=== PATIENT | female | born 1965 | race Caucasian/White ===

== ENCOUNTER 2016-08-31 22:16 | Emergency (ER) | payer BC ==
[~2016-08-31] VITALS: Ht 172.7 cm; Wt 102.1 kg
[~2016-08-31 22:16] MED LIST: ALBU1AER9 INH; CRS/10 PO; FEXO1TAB49 PO; IBUP-103 PO; IMT100 PO; LISI-461 PO; LORA-741 PO; LRS20 PO; MOME50SP5; NAPR-1169 PO; VENL150T33 PO; ZNF/4 PO
[2016-08-31 22:20] VITALS: TEMP 36.6; Ht 172.7 cm; Wt 102.1 kg
[2016-08-31] MEDS ORDERED: SODIUM CHLORIDE 0.9% 1000ML 500 ML IV STA (22:59)
[2016-08-31] MEDS ORDERED: METHYLPREDNISOLONE 125 MG VIAL IV STA (22:59)
[2016-08-31 23:44] LABS: BASO % 0.3 %; BASO ABS # 0.03 K/uL (0-0.2); COMPLETE YES; EOS % 4.8 %; HEMATOCRIT 39.9 % (37-47); IG% 0.2 %; LYMPH % 12.2 %; LYMPH ABS # 1.13 K/uL (1.2-3.4); MEAN CELL VOLUME 85.4 fL (80-100); MEAN CORPUSCULAR HEMOGLOBIN 29.8 pg (25-34); MEAN CORPUSCULAR HGB CONC 34.8 g/dl (32-36); MEAN PLATELET VOLUME 11.1 fL (7.4-10.4); MONO % 8.9 %; NEUT % 73.6 %; PLATELET COUNT 229 K/uL (130-400); RED BLOOD COUNT 4.67 M/uL (4.2-5.4); WHITE BLOOD COUNT 9.28 K/uL (4.8-10.8)
--- NOTE | 2016-08-31 23:53 | EMERGENCY ROOM VISIT NOTE ---
History Report prepared by Lola: Naomi Herrera Under the Supervision of: Dr. Irving Valenzuela M.D. First contact with patient: 22:53 Chief Complaint: RESPIRATORY PROBLEMS Stated Complaint: TROUBLE BREATHING Nursing Triage Summary: Patient states "I am having trouble breathing since today. I have hx of sarcoidosis in my lungs." History of Present Illness The patient is a 51 year old female who presents to the Emergency Room with complaints of constant respiratory troubles beginning today. The patient states that she began to have trouble breathing, sore throat and is losing her voice. She also notes a wet cough with green sputum. The cough did begin yesterday. The patient has been using her inhalers that she has at home with no relief. She denies a fever. The patient states that she felt good yesterday. She also notes sarcoidosis in her lungs and asthma. Patient had her influenza vaccine this year. Over the weekend she was exposed to chest cold symptoms. Source of History: patient Onset: today Position: other (global) Quality: other (respiratory troubles) Associated Symptoms: + cough, + sorethroat, No fevers Note: Patient is experiencing trouble breathing and lose of voice. Review of Systems See HPI for pertinent positives & negatives. A total of 10 systems reviewed and were otherwise negative. Past Medical & Surgical Medical Problems: (1) Asthma (2) Chest pain (3) Chondrosarcoma (4) Hyperlipidemia (5) Hypertension (6) Malignant melanoma Family History No significant family history Social History Smoking Status: Never Smoker Alcohol Use: occasionally Marital Status: Housing Status: lives with family Current/Historical Medications Scheduled Doxycycline Hyclate (Vibramycin), 100 MG PO BID Fexofenadine Hcl (Jenelle Allergy), 180 MG PO DAILY Furosemide (Furosemide), 20 MG PO DAILY Lactobacillus (Probiotic), 1 DOSE PO DAILYBB Lisinopril (Zestril), 10 MG PO DAILY Naproxen (Naprosyn), 500 MG PO BID Prednisone (Prednisone), 2 TAB PO DAILY Pseudoephedrine-Guaifenesin (Mucinex D), 1 TAB PO BID Rosuvastatin Calcium (Crestor), 10 MG PO DAILY Tizanidine (Tizanidine HCl), 4 MG PO HS Venlafaxine Hcl (Venlafaxine Extended Rel), 37.5 MG PO QAM Venlafaxine Hcl (Effexor Extended Rel), 150 MG PO QAM Scheduled PRN Albuterol Hfa (Ventolin Hfa), 2 PUFFS PO q4-6hrs PRN for Wheezing Fluticasone Propionate (Fluticasone Propionate), 1 SPRAY FAM DAILY PRN for Nasal Congestion Ibuprofen Tab (Advil), 400 MG PO Q6H PRN for Pain or Fever Lorazepam (Ativan), 0.5 MG PO TID PRN for Anxiety Sumatriptan Succinate (Imitrex), 50 MG PO UD PRN for Migraine Allergies Coded Allergies: Sulfamethoxazole w/Trimethoprim (Verified Allergy, Intermediate, HIVES, ) Penicillins (Verified Allergy, Mild, ILLNESS, 08/31/16) Physical Exam Vital Signs Date Time Temp Pulse Resp B/P Pulse Ox O2 Delivery O2 Flow Rate FiO2 09/01/16 00:45 159/112 09/01/16 00:39 85 18 95 Room Air 08/31/16 23:54 93 20 165/88 97 Room Air 08/31/16 23:36 90 08/31/16 22:24 100 Room Air 08/31/16 22:20 36.6 103 18 142/87 100 Room Air Physical Exam GENERAL: Patient is in no acute distress. HEENT: No acute trauma, normocephalic atraumatic, mucous membranes moist, no nasal congestion, no scleral icterus, no throat erythema or exudate, hoarse sounding voice. NECK: No stridor, no adenopathy, no meningismus, trachea is midline. LUNGS: Decreased breath sounds bilaterally. No wheezing or rhonchi. No respiratory distress. HEART: Mildly tachycardic with regular rhythm, no murmurs. ABDOMEN: Soft, nontender, bowel sounds positive, no hernias, no peritonitis. EXTREMITIES: No cyanosis or edema, full range of motion of all the joints without pain or difficulty, no signs for acute trauma. NEUROLOGIC: Oriented x 3, no acute motor or sensory deficits, no focal weakness. SKIN: No rash, no jaundice, no diaphoresis. Medical Decision & Procedures ER Provider Diagnostic Interpretation: X-ray results as stated below per interpretation by me and the radiologist: Chest X-Ray: No CHF, pneumonia, pneumothorax, or mediastinal widening. Laboratory Results 08/31/16 23:34 Red Blood Count 4.67, Mean Corpuscular Volume 85.4, Mean Corpuscular Hemoglobin 29.8, Mean Corpuscular Hemoglobin Concent 34.8, Mean Platelet Volume 11.1, Neutrophils (%) (Auto) 73.6, Lymphocytes (%) (Auto) 12.2, Monocytes (%) (Auto) 8.9, Eosinophils (%) (Auto) 4.8, Basophils (%) (Auto) 0.3, Neutrophils # (Auto) 6.82, Lymphocytes # (Auto) 1.13, Monocytes # (Auto) 0.83, Eosinophils # (Auto) 0.45, Basophils # (Auto) 0.03 08/31/16 23:34 Test 08/31/16 23:30 08/31/16 23:34 Influenza Type A Antigen Neg for Influ A (NEG) Influenza Type B Antigen Neg for Influ B (NEG) White Blood Count 9.28 K/uL (4.8-10.8) Red Blood Count 4.67 M/uL (4.2-5.4) Hemoglobin 13.9 g/dL (12.0-16.0) Hematocrit 39.9 % (37-47) Mean Corpuscular Volume 85.4 fL (80-100) Mean Corpuscular Hemoglobin 29.8 pg (25-34) Mean Corpuscular Hemoglobin Concent 34.8 g/dl (32-36) Platelet Count 229 K/uL (130-400) Mean Platelet Volume 11.1 fL (7.4-10.4) Neutrophils (%) (Auto) 73.6 % Lymphocytes (%) (Auto) 12.2 % Monocytes (%) (Auto) 8.9 % Eosinophils (%) (Auto) 4.8 % Basophils (%) (Auto) 0.3 % Neutrophils # (Auto) 6.82 K/uL (1.4-6.5) Lymphocytes # (Auto) 1.13 K/uL (1.2-3.4) Monocytes # (Auto) 0.83 K/uL (0.11-0.59) Eosinophils # (Auto) 0.45 K/uL (0-0.5) Basophils # (Auto) 0.03 K/uL (0-0.2) RDW Standard Deviation 42.6 fL (36.4-46.3) RDW Coefficient of Variation 13.7 % (11.5-14.5) Immature Granulocyte % (Auto) 0.2 % Immature Granulocyte # (Auto) 0.02 K/uL (0.00-0.02) Anion Gap 9.0 mmol/L (3-11) Est Creatinine Clear Calc Drug Dose 92.4 ml/min Estimated GFR () 86.9 Estimated GFR (Non- 75.0 BUN/Creatinine Ratio 24.0 (10-20) Calcium Level 8.9 mg/dl (8.5-10.1) Total Bilirubin 0.5 mg/dl (0.2-1) Aspartate Amino Transf (AST/SGOT) 18 U/L (15-37) Alanine Aminotransferase (ALT/SGPT) 26 U/L (12-78) Alkaline Phosphatase 93 U/L (45-117) Troponin I < 0.015 ng/ml (0-0.045) Total Protein 7.0 gm/dl (6.4-8.2) Albumin 3.9 gm/dl (3.4-5.0) Globulin 3.1 gm/dl (2.5-4.0) Albumin/Globulin Ratio 1.3 (0.9-2) Laboratory results reviewed by me. Medications Administered Medications (Trade) Dose Ordered Sig/Citlaly Route Start Time Stop Time Status Last Admin Dose Admin Sodium Chloride (Nss 1000ml) 500 ml @ 999 mls/hr Q31M STAT IV 08/31/16 22:59 08/31/16 23:29 DC 08/31/16 22:59 999 MLS/HR Methylprednisolone Sodium Succinate (Solu-Medrol IV) 125 mg NOW STAT IV 08/31/16 22:59 08/31/16 23:01 DC 08/31/16 23:51 125 MG Doxycycline Hyclate (Vibramycin Cap) 100 mg ONE ONCE PO 09/01/16 01:15 09/01/16 01:16 DC 09/01/16 01:15 100 MG ECG Indication: SOB/dyspnea Rate (beats per minute): 88 Rhythm: normal sinus Findings: no acute ischemic change, prolonged QT (mildly), no ectopy ED Course 3: The patient was evaluated in room A2. A complete history and physical exam was performed. 2259: Solu Medrol IV 125 mg IV, Sodium Chloride 500 ml @ 999 mls/hr IV. Patient was given 100 mg of oral doxycycline. 0041: Reevaluated the patient. Discussed results and discharge instructions: She verbalized understanding and agreement. The patient is ready for discharge. Medical Decision The patient is a 51 year old female who presents to the ED with complaints of respiratory troubles. Differential diagnoses considered include flu like illness, pneumonia, bronchitis, pneumothorax, exacerbation of asthma, anemia, electrolyte imbalance. There is no leukocytosis or concerning anemia. No significant electrolyte abnormality, kidney failure or hepatitis. EKG shows a sinus rhythm, no acute ischemia. Cardiac enzyme testing times one is not consistent with acute cardiac injury. Chest x-ray does not show pneumonia, pneumothorax or mediastinal widening. Influenza testing was negative. The patient was already somewhat jittery from the albuterol she had used prior to arrival, no further albuterol was given. She was given IV Solu-Medrol and IV saline. She received a dose of oral doxycycline. The patient has an acute bronchitis with a flare of her asthma. She has underlying sarcoid. Given her underlying issues, I do think antibiotics would be indicated. She is going to be placed on doxycycline twice a day. She will continue frequent albuterol use and I have written a prescription for a prednisone burst. The patient can return here if not improving or if her breathing seems to be worsening. Outpatient follow-up was suggested. Impression Primary Impression: Acute bronchitis Additional Impression: Exacerbation of asthma Scribe Attestation The scribe's documentation has been prepared under my direction and personally reviewed by me in its entirety. I confirm that the note above accurately reflects all work, treatment, procedures, and medical decision making performed by me. Departure Information Dispostion Home / Self-Care Prescriptions Prednisone (Prednisone) 20 Mg Tab 2 TAB PO DAILY for 5 Days, #10 TAB Prov: Irving Valenzuela M.D. 09/01/16 Doxycycline Hyclate (VIBRAMYCIN) 100 Mg Cap 100 MG PO BID for 10 Days, #20 CAP Prov: Irving Valenzuela M.D. 09/01/16 Referrals No Doctor, Assigned (PCP) Forms HOME CARE DOCUMENTATION FORM, IMPORTANT VISIT INFORMATION, WORK / SCHOOL INSTRUCTIONS Patient Instructions My [facility] Additional Instructions doxycycline 2x per day for 10 days prednisone daily for 5 more days albuterol 2-3 puffs every 6 hour for keep the lungs open rest stay well hydrated return if worsening or if breathing is not improving see fam md next week Problem Qualifiers
[2016-08-31] MEDS ORDERED: EFFSR150 PO (23:58)
[2016-08-31] MEDS ORDERED: VENL37.593 PO (23:58)
[2016-08-31] MEDS ORDERED: LSX20 PO (23:59)
[2016-08-31] MEDS ORDERED: FLNIN/ NAE (23:59)
[2016-09-01] MEDS ORDERED: VNTHFA/IN PO
[2016-09-01] MEDS ORDERED: PSEU60TA80 PO (00:03)
[2016-09-01] MEDS ORDERED: LACT1CAP6 PO (00:03)
[2016-09-01 00:06] LABS: ALT/SGPT 26 U/L (12-78); BLOOD UREA NITROGEN 21 mg/dl (7-18); CALCIUM 8.9 mg/dl (8.5-10.1); CARBON DIOXIDE 28 mmol/L (21-32); CHLORIDE 105 mmol/L (98-107); CREATININE 0.88 mg/dl (0.60-1.20); GLUCOSE 110 mg/dl (70-99); POTASSIUM 3.2 mmol/L (3.5-5.1); SODIUM 142 mmol/L (136-145)
[2016-09-01 00:11] LABS: ALB/GLOB RATIO 1.3 (0.9-2); ALKALINE PHOSPHATASE 93 U/L (45-117); AST/SGOT 18 U/L (15-37)
[2016-09-01] MEDS ORDERED: AZITHROMYCIN 250 MG TAB PO STA (00:34)
[2016-09-01 00:39] VITALS: PULSE 85; O2SAT 95
[2016-09-01] MEDS ORDERED: PRED20TA PO (00:39)
[2016-09-01] MEDS ORDERED: DOXY100C PO (00:39)
[2016-09-01 00:45] VITALS: BP 159/112
[2016-09-01] MEDS ORDERED: DOXYCYCLINE HYCLATE 100 MG CAP PO ONE (01:15)
--- NOTE | 2016-09-01 07:19 | DIAGNOSTIC IMAGING REPORT ---
SINGLE VIEW CHEST CLINICAL HISTORY: Dyspnea. FINDINGS: An AP, portable, upright chest radiograph is compared to chest x-ray and chest CT dated 09/09/2015. The examination is degraded by portable technique and patient rotation. The cardiomediastinal silhouette is unremarkable. Chronic interstitial thickening is unchanged. There is no airspace consolidation large pleural effusion. No pneumothorax is seen. The skeletal structures appear osteopenic. The bony thorax is grossly intact. IMPRESSION: No acute cardiopulmonary abnormality. Electronically signed by: Irving Escalante M.D. 09/01/2016 7:17 AM Dictated Date/Time: 09/01/2016 7:14 AM
== END 2016-09-01 01:11 | disposition home or self-care (01) ==
LOC: C.EDB 22:17 → C.EDA 09-01 01:11
DX: J20.9 Acute bronchitis, unspecified (principal); J45.901 Unspecified asthma with (acute) exacerbation; E78.5 Hyperlipidemia, unspecified; I10 Essential (primary) hypertension; Z85.820 Personal history of malignant melanoma of skin

== ENCOUNTER → 2017-01-16 | Outpatient (CLI) | payer BC ==
[~2017-01-16] MED LIST changes: -ALBU1AER9 INH; +EFFSR150 PO; +FLNIN/ NAE; +LACT1CAP6 PO; -LRS20 PO; +LSX20 PO; -MOME50SP5; +PSEU60TA80 PO; -VENL150T33 PO; +VENL37.593 PO; +VNTHFA/IN PO
--- NOTE | 2017-01-16 14:29 | DIAGNOSTIC IMAGING REPORT ---
CHEST 2 VIEWS ROUTINE HISTORY: D86.0 Sarcoidosis of [id number] COMPARISON: Chest 08/31/2016. FINDINGS: The heart is normal in size. No pleural effusions. No pneumothorax. No rib fractures. Bilateral hilar enlargement and upper lobe predominant interstitial thickening remains unchanged. IMPRESSION: No change in the bilateral hilar enlargement suggestive of mild lymphadenopathy and upper lobe predominant interstitial thickening. This is consistent with the patient's history of sarcoidosis. No new focal lung consolidations. Electronically signed by: Aman Thakur M.D. 01/16/2017 2:28 PM Dictated Date/Time: 01/16/2017 2:26 PM
== END | disposition home or self-care (01) ==
LOC: C.RAD1850 13:57
PROVIDERS: ATTEND Internal Medicine Pulmonary Disease
DX: D86.0 Sarcoidosis of lung (principal)

== ENCOUNTER → 2017-08-27 | Outpatient (CLI) | payer BC ==
[~2017-08-27] MED LIST changes: +TRAM-10 PO; +VENL75CA PO
== END | disposition home or self-care (01) ==
LOC: C.LAB 14:42
PROVIDERS: ATTEND Physician Assistant

== ENCOUNTER 2017-09-07 13:04 | Emergency (ER) | payer BC ==
[~2017-09-07] VITALS: Ht 172.7 cm; Wt 106.0 kg
[~2017-09-07 13:04] MED LIST changes: -TRAM-10 PO; -VENL75CA PO
[2017-09-07 13:15] VITALS: TEMP 36.7; Ht 172.7 cm; Wt 106.0 kg
[2017-09-07] MEDS ORDERED: VENL75CA PO (13:50)
[2017-09-07] MEDS ORDERED: SODIUM CHLORIDE 0.9% 1000ML 1,000 ML IV STA (14:07)
[2017-09-07] MEDS ORDERED: PROMETHAZINE HCL INJ 25 MG in SODIUM CHLORIDE 0.9% 50ML 50 ML IV STA (14:07)
[2017-09-07] MEDS ORDERED: KETOROLAC TROMETHAMINE 30 MG/ML VIAL IV STA (14:11)
--- NOTE | 2017-09-07 14:13 | EMERGENCY ROOM VISIT NOTE ---
History Report prepared by Lola: León Yi Under the Supervision of: Dr. Domingo Mckeon D.O. First contact with patient: 14:00 Chief Complaint: HEADACHE Stated Complaint: HEADACHE, NUMBNESS AND TINGLING, HAS BRAIN TUMOR History of Present Illness The patient is a 52 year old female with metastatic brain cancer who presents to the Emergency Room with complaints of a persistent right-sided headache that started upon waking this morning. She states that in the past her headaches have been on both sides, so this is unusual. The patient notes that she had proton therapy in 2014, and her last imaging done in May showed that her brain tumor was stabilized. She notes that she has not had a headache "in a while". The patient says that she has came here before for headaches, and received a cocktail which helped. She adds that she has had tingling on the right side of her face this morning, as well as some ringing in her right ear. The patient states that she has been nauseous with episodes of vomiting. She denies any facial droop or difficulty speaking. The patient notes that she chronically has trouble walking. Source of History: patient, family Onset: Upon waking this morning Position: head (right) Symptom Intensity: never had unilateral before Quality: ache Timing: other (persistent) Associated Symptoms: + nausea, + vomiting Note: Tingling right side of face. Right ear ringing. Denies facial droop or difficulty speaking. Review of Systems See HPI for pertinent positives & negatives. A total of 10 systems reviewed and were otherwise negative. Past Medical & Surgical Medical Problems: (1) Asthma (2) Chest pain (3) Chondrosarcoma (4) Hyperlipidemia (5) Hypertension (6) Malignant melanoma Family History No significant family history Social History Smoking Status: Never Smoker Alcohol Use: occasionally Marital Status: Housing Status: lives with family Current/Historical Medications Scheduled Fexofenadine Hcl (Jenelle Allergy), 180 MG PO DAILY Furosemide (Furosemide), 20 MG PO DAILY Lactobacillus (Probiotic), 1 DOSE PO DAILYBB Lisinopril (Zestril), 10 MG PO DAILY Naproxen (Naprosyn), 500 MG PO BID Rosuvastatin Calcium (Crestor), 10 MG PO DAILY Tizanidine (Tizanidine HCl), 4 MG PO HS Venlafaxine Hcl (Effexor Extended Rel), 150 MG PO QAM Venlafaxine Hcl (Effexor Xr), 7 MG PO DAILY Scheduled PRN Albuterol Hfa (Ventolin Hfa), 2 PUFFS PO q4-6hrs PRN for Wheezing Fluticasone Propionate (Fluticasone Propionate), 1 SPRAY FAM DAILY PRN for Nasal Congestion Ibuprofen Tab (Advil), 400 MG PO Q6H PRN for Pain or Fever Lorazepam (Ativan), 0.5 MG PO TID PRN for Anxiety Tramadol (Ultram), 1 TAB PO TID PRN for Severe Pain Allergies Coded Allergies: Sulfamethoxazole w/Trimethoprim (Verified Allergy, Intermediate, HIVES, 09/07/17) Penicillins (Verified Allergy, Mild, ILLNESS, 09/07/17) Physical Exam Vital Signs Date Time Temp Pulse Resp B/P (MAP) Pulse Ox O2 Delivery O2 Flow Rate FiO2 09/07/17 17:10 78 18 177/114 96 Room Air 09/07/17 15:15 86 16 178/113 97 Room Air 09/07/17 14:32 98 Room Air 09/07/17 14:32 98 Room Air 09/07/17 14:09 79 09/07/17 13:15 36.7 76 16 196/111 96 Room Air Physical Exam GENERAL: Patient is awake, alert, and in no acute distress. Patient is resting comfortably and showing no signs of anxiety EYES: The conjunctivae are clear. The pupils are round and reactive. EARS, NOSE, MOUTH AND THROAT: The nose is without any evidence of any deformity. Mucous membranes are moist tongue is midline NECK: The neck is nontender and supple. RESPIRATORY: Normal respiratory effort is noted there is no evidence of wheezing rhonchi or rales CARDIOVASCULAR: Regular rate and rhythm noted there no murmurs rubs or gallops normal S1 normal S2 GASTROINTESTINAL: The abdomen is soft. Bowel sounds are present in all quadrants. Abdomen is nontender MUSCULOSKELETAL/EXTREMITIES: There is no evidence of gross deformity full range of motion is noted in the hips and shoulders SKIN: There is no obvious evidence of any rash. There are no petechiae, pallor or cyanosis noted. NEUROLOGIC: Patient is awake alert and oriented x3 strength is symmetric patellar reflexes are 2+ bilaterally Medical Decision & Procedures ER Provider Diagnostic Interpretation: HEAD WITHOUT CONTRAST (CT) CLINICAL HISTORY: 52 years-old Female presenting with right sided VILCHIS, hx of metastatic CA to brain. TECHNIQUE: Multidetector CT imaging of the head was performed without the use of intravenous contrast. IV contrast: None. A dose lowering technique was used consistent with the principles of ALARA (as low as reasonably achievable). COMPARISON: MR brain from 06/03/[address] head from 05/15/2014. CT DOSE (mGy.cm): The estimated cumulative dose is 537.48 mGy.cm. FINDINGS: Head Bucker topogram: Unremarkable. Ventricles and sulci normal in size. Cystic encephalomalacia and gliosis in the anterior right temporal lobe. No mass effect or midline shift. No hemorrhage or acute territorial infarct. No extra-axial fluid collection. Redemonstration of osseous erosion centered at the right kathleen-occipital synchondrosis. The degree of osseous erosion is unchanged. Intracranial extension is poorly assessed on this noncontrast CT. IMPRESSION: 1. No acute intracranial abnormality. 2. Redemonstration of the destructive right skull base mass centered at the kathleen-occipital synchondrosis consistent with known chondrosarcoma. The extent of the mass is poorly delineated on this noncontrast CT. If there is clinical concern, contrast-enhanced MR would better characterize the full extent of this mass. Electronically signed by: Akira Pitts M.D. 09/07/2017 3:25 PM Dictated Date/Time: 09/07/2017 3:20 PM Laboratory Results 09/07/17 14:22 Red Blood Count 4.84, Mean Corpuscular Volume 89.0, Mean Corpuscular Hemoglobin 30.6, Mean Corpuscular Hemoglobin Concent 34.3, Mean Platelet Volume 10.9, Neutrophils (%) (Auto) 77.9, Lymphocytes (%) (Auto) 10.1, Monocytes (%) (Auto) 8.4, Eosinophils (%) (Auto) 3.1, Basophils (%) (Auto) 0.3, Neutrophils # (Auto) 5.03, Lymphocytes # (Auto) 0.65, Monocytes # (Auto) 0.54, Eosinophils # (Auto) 0.20, Basophils # (Auto) 0.02 09/07/17 14:22 Test 09/07/17 14:22 09/07/17 16:24 White Blood Count 6.45 K/uL (4.8-10.8) Red Blood Count 4.84 M/uL (4.2-5.4) Hemoglobin 14.8 g/dL (12.0-16.0) Hematocrit 43.1 % (37-47) Mean Corpuscular Volume 89.0 fL (80-100) Mean Corpuscular Hemoglobin 30.6 pg (25-34) Mean Corpuscular Hemoglobin Concent 34.3 g/dl (32-36) Platelet Count 227 K/uL (130-400) Mean Platelet Volume 10.9 fL (7.4-10.4) Neutrophils (%) (Auto) 77.9 % Lymphocytes (%) (Auto) 10.1 % Monocytes (%) (Auto) 8.4 % Eosinophils (%) (Auto) 3.1 % Basophils (%) (Auto) 0.3 % Neutrophils # (Auto) 5.03 K/uL (1.4-6.5) Lymphocytes # (Auto) 0.65 K/uL (1.2-3.4) Monocytes # (Auto) 0.54 K/uL (0.11-0.59) Eosinophils # (Auto) 0.20 K/uL (0-0.5) Basophils # (Auto) 0.02 K/uL (0-0.2) RDW Standard Deviation 43.6 fL (36.4-46.3) RDW Coefficient of Variation 13.3 % (11.5-14.5) Immature Granulocyte % (Auto) 0.2 % Immature Granulocyte # (Auto) 0.01 K/uL (0.00-0.02) Anion Gap 6.0 mmol/L (3-11) Est Creatinine Clear Calc Drug Dose 109.3 ml/min Estimated GFR () 104.7 Estimated GFR (Non- 90.4 BUN/Creatinine Ratio 27.6 (10-20) Calcium Level 8.8 mg/dl (8.5-10.1) Magnesium Level 2.3 mg/dl (1.8-2.4) Total Bilirubin 0.5 mg/dl (0.2-1) Direct Bilirubin 0.1 mg/dl (0-0.2) Aspartate Amino Transf (AST/SGOT) 14 U/L (15-37) Alanine Aminotransferase (ALT/SGPT) 29 U/L (12-78) Alkaline Phosphatase 90 U/L (45-117) Total Protein 7.5 gm/dl (6.4-8.2) Albumin 4.0 gm/dl (3.4-5.0) Urine Color YELLOW Urine Appearance CLEAR (CLEAR) Urine pH 7.0 (4.5-7.5) Urine Specific [place] 1.017 (1.000-1.030) Urine Protein NEG (NEG) Urine Glucose (UA) NEG (NEG) Urine Ketones NEG (NEG) Urine Occult Blood NEG (NEG) Urine Nitrite NEG (NEG) Urine Bilirubin NEG (NEG) Urine Urobilinogen NEG (NEG) Urine Leukocyte Esterase SMALL (NEG) Urine WBC (Auto) 1-5 /hpf (0-5) Urine RBC (Auto) 0-4 /hpf (0-4) Urine Hyaline Casts (Auto) 0 /lpf (0-5) Urine Epithelial Cells (Auto) 10-20 /lpf (0-5) Urine Bacteria (Auto) NEG (NEG) Laboratory results per my review. Medications Administered Medications (Trade) Dose Ordered Sig/Citlaly Route Start Time Stop Time Status Last Admin Dose Admin Sodium Chloride 1,000 ml @ 999 mls/hr Q1H1M STAT IV 09/07/17 14:07 09/07/17 15:07 DC 09/07/17 14:07 999 MLS/HR Promethazine HCl 25 mg/Sodium Chloride 51 ml @ 204 mls/hr NOW STAT IV 09/07/17 14:07 09/07/17 14:21 DC 09/07/17 14:34 204 MLS/HR Ketorolac Tromethamine (Toradol Inj) 30 mg NOW STAT IV 09/07/17 14:11 09/07/17 14:12 DC 09/07/17 14:28 30 MG ED Course 1405: The patient was evaluated in room B10. A complete history and physical examination were performed. 1407: Promethazine HCl 25 mg/Sodium Chloride 51 ml @ 204 mls/hr IV, NSS 1000 ml @ 999 mls/hr IV. 1411: Toradol Inj 30 mg IV. 1716: Upon reevaluation, the patient is resting. I discussed the results and treatment plan with her. She verbalized agreement of the treatment plan. She was discharged home. Medical Decision Differential diagnosis: Etiologies such as migraine headache, meningitis, sinusitis, CO exposure, ICH, SAH, infection, tumor, headache, sinus thrombosis, arterial dissection, as well as others were entertained. Nursing notes reviewed. The patient is a 52-year-old female who presented to the emergency department for headache. The patient does have a history of chronic headaches but feels that this is worse in intensity. The patient had a CT which does show abnormalities consistent with her history of a tumor. There does not appear to be any clear change or bleeding. There does not appear to be any signs of cerebral edema. The patient does not have any focal neurologic deficits. This would be characterized better on an MRI. The patient was encouraged to talk to her primary care physician to see if an MRI would be warranted. She was treated with pain medication and IV fluids in the emergency department. She was reevaluated multiple times. I recommended that she rest and avoid any strenuous activity. She was also encouraged to continue all medications as prescribed. Otherwise she was encouraged to return to the emergency department immediately if symptoms change worsen or the need arises. Medication Reconcilliation Current Medication List: was personally reviewed by me Blood Pressure Screening Patient's blood pressure: Elevated blood pressure Blood pressure disposition: Elevated BP felt to be situational Impression Primary Impression: Headache Additional Impression: Brain tumor Scribe Attestation The scribe's documentation has been prepared under my direction and personally reviewed by me in its entirety. I confirm that the note above accurately reflects all work, treatment, procedures, and medical decision making performed by me. Departure Information Dispostion Home / Self-Care Prescriptions Tramadol (Ultram) 50 Mg Tab 1 TAB PO TID Y for Severe Pain, #25 TAB Prov: Domingo Mckeon, 09/07/17 Referrals Noemi Fuentes (PCP) Khanh Tran M.D. Patient Instructions Headache Pain, My [facility] Additional Instructions Rest and avoid any strenuous activity. Continue all medications as prescribed. Call your family doctor to schedule a follow-up appointment. It is possible he may require an MRI with contrast to further evaluate the cause of your headache. Return to the emergency department immediately if symptoms change worsening the need arises. Continue using Tylenol as directed for mild pain. Problem Qualifiers Primary Impression: Headache Headache type: unspecified Headache chronicity pattern: unspecified pattern Intractability: not intractable Qualified Codes: R51 - Headache
[2017-09-07 14:32] VITALS: O2SAT 98
[2017-09-07 14:46] LABS: MEAN CORPUSCULAR HGB CONC 34.3 g/dl (32-36); MEAN PLATELET VOLUME 10.9 fL (7.4-10.4); PLATELET COUNT 227 K/uL (130-400)
[2017-09-07 14:56] LABS: CALCIUM 8.8 mg/dl (8.5-10.1); CREATININE 0.75 mg/dl (0.60-1.20); POTASSIUM 3.9 mmol/L (3.5-5.1)
[2017-09-07 14:59] LABS: TOTAL PROTEIN 7.5 gm/dl (6.4-8.2)
[2017-09-07 15:06] LABS: HEMATOCRIT 43.1 % (37-47); HEMOGLOBIN 14.8 g/dL (12.0-16.0); MEAN CORPUSCULAR HEMOGLOBIN 30.6 pg (25-34); RED CELL DISTRIBUTION WIDTH CV 13.3 % (11.5-14.5); RED CELL DISTRIBUTION WIDTH SD 43.6 fL (36.4-46.3); WHITE BLOOD COUNT 6.45 K/uL (4.8-10.8)
[2017-09-07 15:07] LABS: BASO % 0.3 %; BASO ABS # 0.02 K/uL (0-0.2); EOS % 3.1 %; IG# 0.01 K/uL (0.00-0.02); LYMPH % 10.1 %; LYMPH ABS # 0.65 K/uL (1.2-3.4); MONO % 8.4 %; MONO ABS # 0.54 K/uL (0.11-0.59); NEUT % 77.9 %; NEUT ABS # 5.03 K/uL (1.4-6.5)
--- NOTE | 2017-09-07 15:27 | DIAGNOSTIC IMAGING REPORT ---
HEAD WITHOUT CONTRAST (CT) CLINICAL HISTORY: 52 years-old Female presenting with right sided VILCHIS, hx of metastatic CA to brain. TECHNIQUE: Multidetector CT imaging of the head was performed without the use of intravenous contrast. IV contrast: None. A dose lowering technique was used consistent with the principles of ALARA (as low as reasonably achievable). COMPARISON: MR brain from 06/03/[address] head from 05/15/2014. CT DOSE (mGy.cm): The estimated cumulative dose is 537.48 mGy.cm. FINDINGS: Wheelabrator Operator topogram: Unremarkable. Ventricles and sulci normal in size. Cystic encephalomalacia and gliosis in the anterior right temporal lobe. No mass effect or midline shift. No hemorrhage or acute territorial infarct. No extra-axial fluid collection. Redemonstration of osseous erosion centered at the right kathleen-occipital synchondrosis. The degree of osseous erosion is unchanged. Intracranial extension is poorly assessed on this noncontrast CT. IMPRESSION: 1. No acute intracranial abnormality. 2. Redemonstration of the destructive right skull base mass centered at the kathleen-occipital synchondrosis consistent with known chondrosarcoma. The extent of the mass is poorly delineated on this noncontrast CT. If there is clinical concern, contrast-enhanced MR would better characterize the full extent of this mass. Electronically signed by: Akira Pitts M.D. 09/07/2017 3:25 PM Dictated Date/Time: 09/07/2017 3:20 PM
[2017-09-07 17:10] VITALS: BP 177/114; PULSE 78; O2SAT 96
[2017-09-07] MEDS ORDERED: TRAM-10 PO (17:24)
== END 2017-09-07 17:36 | disposition home or self-care (01) ==
LOC: C.EDB 13:06
DX: R51 Headache (principal); D49.6 Neoplasm of unspecified behavior of brain; R20.2 Paresthesia of skin; H93.11 Tinnitus, right ear; R11.2 Nausea with vomiting, unspecified; J45.909 Unspecified asthma, uncomplicated; I10 Essential (primary) hypertension; E78.5 Hyperlipidemia, unspecified; Z88.2 Allergy status to sulfonamides; Z88.0 Allergy status to penicillin